=== PATIENT | female | born 1975 | race Caucasian/White ===

== ENCOUNTER 2017-01-02 13:21 | Emergency (ER) | payer OTHER ==
[2017-01-02 13:32] VITALS: PULSE 78; RESP 16; TEMP 98.4; O2SAT 98
--- NOTE | 2017-01-02 14:44 | EDPHY ---
H & P Smoking Status: Never smoked Time Seen by Provider: 01/02/17 14:42 HPI/ROS: Chief complaint. Pelvic pain HPI. 41-year-old female presents with chills and abdominal pain. She had an IUD placed 5 days ago. Since then she has had emotional lability. 2 days ago she started developed low abdominal pain described as sharp and worse on the right. Has nausea. Chills today but no fever. Decreased p.o. intake. No vaginal bleeding or spotting. She had a vaginal infection when the IUD was placed but was given antibiotics. She does not know what type of vaginal infection that she had. No urinary symptoms. She would like the IUD removed ROS Constitutional. no fever/chills, no weakness Eyes. no problems with vision ENT. no sore throat, no nasal drainage Cardiovascular. no chest pain Respiratory. no shortness of breath, no cough Abdominal. Low abdominal pain with nausea . no problems urinating MS. no calf pain/swelling, no neck/back pain, no joint pain Skin. no rash Lymph. no swollen glands Neuro. no headache, no dizziness, no difficulty walking or with speech (Jay Kennedy) Past Medical/Surgical History: Pituitary microadenoma, IUD (Jay Kennedy) Social History: , nonsmoker, no alcohol (Jay Kennedy) Physical Exam: General Appearance: Alert well-developed female mild distress vital signs are stable Eyes: Pupils equal and round no pallor or injection. ENT, Mouth: Mucous membranes are moist. Respiratory: There are no retractions, lungs are clear to auscultation. Cardiovascular: Regular rate and rhythm. Gastrointestinal: Abdomen is soft with suprapubic tenderness as well as slight tenderness to the right adnexa. No masses. Normal bowel sounds Neurological: Awake and alert, sensory and motor exams grossly normal. Skin: Warm and dry, no rashes. Musculoskeletal: Neck is supple nontender. Extremities symmetrical, full range of motion. Psychiatric: Patient is oriented X 3, there is no agitation. (Jay Kennedy) Constitutional: Initial Vital Signs Temperature (C) 36.9 C 01/02/17 13:28 Heart Rate 78 01/02/17 13:28 Respiratory Rate 16 01/02/17 13:28 Blood Pressure 117/83 H 01/02/17 13:28 O2 Sat (%) 98 01/02/17 13:28 O2 Delivery Mode Room Air Allergies/Adverse Reactions: No Known Allergies Allergy (Unverified 04/29/15 13:07) Home Medications: Medication Instructions Recorded [place] 04/29/15 Medical Decision Making - Diagnostics Imaging Results: Imaging Impressions Pelvic/Renal Ultrasound 01/02/17 14:57 Impression: 1. The IUD is malpositioned as detailed above. 2. Largest follicle on the right ovary measures 1.3 x 1.2 cm. Results called and discussed with Dr. Justin Gar on 01/02/2017 at 16:18 Procedures: IV normal saline. Zofran for nausea (Jay Kennedy) Other Provider: 1615: IUD is mal-positioned per radiologist. Discussed this with the patient and recommended removal, which she agrees to. 1630: IUD removed successfully by myself. Patient tolerated procedure well. Vaginal swabs sent for culture. She understands she should follow up with her OBGYN this week. Return precautions given. (Justin Gar) Care Turn Over: Care to Dr. Gar at 3:00 p.m. (Jay Kennedy) - Data Points Laboratory Results: Laboratory Results 01/02/17 15:10 01/02/17 15:10 01/02/17 01/02/17 01/02/17 15:10 15:10 15:10 WBC RBC Hgb Hct MCV MCH MCHC RDW Plt Count MPV Neut % (Auto) Lymph % (Auto) [place] % (Auto) Eos % (Auto) Baso % (Auto) Nucleat RBC Rel Count Absolute Neuts (auto) Absolute Lymphs (auto) Absolute Monos (auto) Absolute Eos (auto) Absolute Basos (auto) Absolute Nucleated RBC Immature Gran % Immature Gran # Sodium 140 mEq/L mEq/L (134-144) Potassium 4.0 mEq/L mEq/L (3.5-5.2) Chloride 105 mEq/L mEq/L (97-110) Carbon Dioxide 22 mEq/l mEq/l (22-31) Anion Gap 13 mEq/L mEq/L (8-16) BUN 14 mg/dL mg/dL (7-23) Creatinine 0.9 mg/dL mg/dL (0.6-1.0) Estimated GFR > 60 Glucose 88 mg/dL mg/dL (70-100) Calcium 9.8 mg/dL mg/dL (8.5-10.4) Beta HCG, Qual NEGATIVE Urine Color YELLOW Urine Appearance CLEAR Urine pH 6.0 (5.0-7.5) Ur Specific [place] 1.027 (1.002-1.030) Urine Protein NEGATIVE (NEGATIVE) Urine Ketones NEGATIVE (NEGATIVE) Urine Blood NEGATIVE (NEGATIVE) Urine Nitrate NEGATIVE (NEGATIVE) Urine Bilirubin NEGATIVE (NEGATIVE) Urine Urobilinogen NEGATIVE EU EU (0.2-1.0) Ur Leukocyte Esterase NEGATIVE (NEGATIVE) Urine RBC 1-3 /hpf /hpf (0-3) Urine WBC 1-3 /hpf /hpf (0-3) Ur Epithelial Cells TRACE /lpf /lpf (NONE-1+) Urine Mucus TRACE /lpf /lpf (NONE-1+) Urine Glucose NEGATIVE (NEGATIVE) 01/02/17 15:10 WBC 8.46 10^3/uL 10^3/uL (3.80-9.50) RBC 4.58 10^6/uL 10^6/uL (4.18-5.33) Hgb 15.2 g/dL g/dL (12.6-16.3) Hct 43.3 % % (38.0-47.0) MCV 94.5 fL fL (81.5-99.8) MCH 33.2 pg pg (27.9-34.1) MCHC 35.1 g/dL g/dL (32.4-36.7) RDW 12.3 % % (11.5-15.2) Plt Count 255 10^3/uL 10^3/uL (150-400) MPV 10.0 fL fL (8.7-11.7) Neut % (Auto) 68.4 % % (39.3-74.2) Lymph % (Auto) 24.6 % % (15.0-45.0) [place] % (Auto) 6.1 % % (4.5-13.0) Eos % (Auto) 0.0 % L % (0.6-7.6) Baso % (Auto) 0.5 % % (0.3-1.7) Nucleat RBC Rel Count 0.0 % % (0.0-0.2) Absolute Neuts (auto) 5.79 10^3/uL 10^3/uL (1.70-6.50) Absolute Lymphs (auto) 2.08 10^3/uL 10^3/uL (1.00-3.00) Absolute Monos (auto) 0.52 10^3/uL 10^3/uL (0.30-0.80) Absolute Eos (auto) 0.00 10^3/uL L 10^3/uL (0.03-0.40) Absolute Basos (auto) 0.04 10^3/uL 10^3/uL (0.02-0.10) Absolute Nucleated RBC 0.00 10^3/uL 10^3/uL (0-0.01) Immature Gran % 0.4 % % (0.0-1.1) Immature Gran # 0.03 10^3/uL 10^3/uL (0.00-0.10) Sodium Potassium Chloride Carbon Dioxide Anion Gap BUN Creatinine Estimated GFR Glucose Calcium Beta HCG, Qual Urine Color Urine Appearance Urine pH Ur Specific [place] Urine Protein Urine Ketones Urine Blood Urine Nitrate Urine Bilirubin Urine Urobilinogen Ur Leukocyte Esterase Urine RBC Urine WBC Ur Epithelial Cells Urine Mucus Urine Glucose Medications Given: Discontinued Medications Sodium Chloride (Ns) 1,000 mls @ 0 mls/hr IV EDNOW ONE; Wide Open PRN Reason: Protocol Stop: 01/02/17 14:58 Last Admin: 01/02/17 15:14 Dose: 1,000 mls Ondansetron HCl (Zofran) 4 mg IVP EDNOW ONE Stop: 01/02/17 14:59 Last Admin: 01/02/17 15:15 Dose: 4 mg Departure - Departure Disposition: Home, Routine, Self-Care Clinical Impression: Encounter for IUD removal Abdominal pain Qualifiers: Abdominal location: generalized Qualified Code(s): R10.84 - Generalized abdominal pain Malpositioned IUD Qualifiers: Encounter type: initial encounter Qualified Code(s): T83.32XA - Displacement of intrauterine contraceptive device, initial encounter Condition: Good Instructions: Abdominal Pain (ED) Additional Instructions: Follow up with your OBGYN for unimproved symptoms over the next 2-3 days. Return for any worsening of condition. Referrals: Waleska Avila DO [Doctor of Osteopathy] - As per Instructions
[2017-01-02] MEDS ORDERED: NS 1,000 ML IV ONE (14:57)
[2017-01-02] MEDS ORDERED: ONDANSETRON 4 MG/2 ML VIAL IVP ONE (14:58)
[2017-01-02 15:23] LABS: % IMMATURE GRANULYOCYTES 0.4 % (0.0-1.1); ABSOLUTE IMMATURE GRANULOCYTES 0.03 10^3/uL (0.00-0.10); ADD DIFF? NO; ADD MORPH? NO; ADD SCAN? NO; ATYPICAL LYMPHOCYTE FLAG 20 (0-99); FRAGMENT RBC FLAG 0 (0-99); HEMATOCRIT 43.3 % (38.0-47.0); HEMOGLOBIN 15.2 g/dL (12.6-16.3); LEFT SHIFT FLG 10 (0-99); LIPEMIA HEMOLYSIS FLAG 90 (0-99); MEAN CELL HEMOGLOBIN 33.2 pg (27.9-34.1); MEAN CELL HEMOGLOBIN CONCENTR. 35.1 g/dL (32.4-36.7); MEAN CELL VOLUME 94.5 fL (81.5-99.8); PLATELET CLUMPS FLAG 0 (0-99); PLATELET COUNT 255 10^3/uL (150-400); RED BLOOD CELL COUNT 4.58 10^6/uL (4.18-5.33); RED CELL DISTRIBUTION WIDTH 12.3 % (11.5-15.2)
[2017-01-02 15:25] LABS: COLOR YELLOW; LEUKOCYTE ESTERASE,URINE NEGATIVE (NEGATIVE); NITRITE,URINE NEGATIVE (NEGATIVE)
[2017-01-02 15:29] LABS: MUCUS TRACE /lpf (NONE-1+)
[2017-01-02 15:32] LABS: ANION GAP 13 mEq/L (8-16); CALCIUM 9.8 mg/dL (8.5-10.4); CARBON DIOXIDE 22 mEq/l (22-31); CHLORIDE 105 mEq/L (97-110); CREATININE 0.9 mg/dL (0.6-1.0); GLOMERULAR FILTRATION RATE > 60; GLUCOSE 88 mg/dL (70-100); SODIUM 140 mEq/L (134-144)
[2017-01-02 16:47] VITALS: BP 117/82
[2017-01-03 13:02] LABS: CHLAMYDIA AMPLIFICATION GENPRB POSITIVE (NEGATIVE)
== END 2017-01-02 16:47 | disposition home or self-care (01) ==
DX: R10.84 Generalized abdominal pain (principal); T83.32XA Displacement of intrauterine contraceptive device, initial encounter; E86.9 Volume depletion, unspecified; Y82.8 Other medical devices associated with adverse incidents
CPT/HCPCS: 96374; J2405